=== PATIENT | male | born 1995 | race American Indian/Alaskan Native ===

== ENCOUNTER 2018-03-03 03:20 | Emergency (ER) | payer BC ==
[2018-03-03] MEDS ORDERED: DiphenhydrAMINE 50 mg/ml Inj ONE ×2 (03:26→10:11)
[2018-03-03] MEDS ORDERED: Sodium Chloride 0.9% 1,000 ML IV ONE (03:44)
[2018-03-03] MEDS ORDERED: DiphenhydrAMINE 50 mg/ml Inj IVP STA ×2 (03:44→09:34)
[2018-03-03] MEDS ORDERED: MethylPREDNISolone 40 mg Vial IVP STA (03:44)
[2018-03-03] MEDS ORDERED: EPINEPHrine 1 mg/ml (1:1000) Inj IM ONE (03:44)
[2018-03-03] MEDS ORDERED: EPINEPHrine 1 mg/ml (1:1000) Inj ONE (03:50)
--- NOTE | 2018-03-03 03:56 | C.PDOC ---
History Of Present Illness 23 year old male with no pertinent PMHx presents to the ER for allergic reaction. As per girlfriend at bedside today is the patient's birthday, he was out drinking and ate some food he did not know was cooked with peanut oil. Since then he has had lip swelling and a rash that moves around his body. Denies tickling to the back of throat, sore throat, difficulty breathing, fever, chills, night sweats, trauma or fall. Time Seen by Provider: 03/03/18 03:24 Chief Complaint (Nursing): Allergic Reaction History Per: Patient History/Exam Limitations: no limitations Onset/Duration Of Symptoms: Hrs Current Symptoms Are (Timing): Still Present Context: Food Possible Cause: Food (Peanut oil) Associated Symptoms: Skin Rash, Swelling Home/EMS Treatment: None Recent travel outside of the [place]: No Past Medical History Reviewed: Historical Data, Nursing Documentation, Vital Signs Vital Signs: Last Vital Signs Temp 97.3 F L 03/03/18 03:24 Pulse 111 H 03/03/18 03:24 Resp BP 113/69 03/03/18 03:24 Pulse Ox 99 03/03/18 03:24 Family History: States: Unknown Family Hx - Social History Hx Alcohol Use: Yes Hx Substance Use: No - Immunization History Hx Tetanus Toxoid Vaccination: No Hx Influenza Vaccination: No Hx Pneumococcal Vaccination: No Review Of Systems Except As Marked, All Systems Reviewed And Found Negative. ENT: Positive for: Other (Lip swelling) Skin: Positive for: Rash Physical Exam - Physical Exam Appears: Well, Non-toxic Skin: Warm, Dry, Rash (Puritic urticarial rash on chest) Head: Atraumatic, Normacephalic Eye(s): bilateral: Normal Inspection, PERRL, EOMI Oral Mucosa: Moist Tongue: Normal Appearing, No Swelling Lips: Other (Lower lip mildly enlarged) Throat: Normal, Other (Protecting airway) Neck: Normal, Supple Chest: Symmetrical, No Tenderness Cardiovascular: Rhythm Regular Respiratory: Normal Breath Sounds, No Accessory Muscle Use, No Stridor, No Wheezing Gastrointestinal/Abdominal: Soft, No Tenderness Back: No CVA Tenderness, No Vertebral Tenderness Extremity: Normal ROM (x4) Neurological/Psych: Oriented x3, Normal Speech ED Course And Treatment O2 Sat by Pulse Oximetry: 99 (Room air) Pulse Ox Interpretation: Normal Medical Decision Making Medical Decision Makin yr old male w/ hx of peanut allergy p/w etoh intoxication and allergic reaction. Accidental ingestion of peanut oil while drinking for pts birthday. Pt intoxicated on exam. +etoh odor noted. No signs of trauma. No trauma per girlfriend bedside who was with pt throughout eval, no signs of trauma on exam. Given epi given etoh intoxication confounding. Mild hives, no complaints of neck/throat tickling or sob. Impression: Allergic reaction IV fluids, benadryl, solumedrol, pepcid, and epi administered. 0652 hives resolved. No complaints of neck/throat tickling or sob. remains intoxicated protecting airway well pt in NAD signed out to Dr. Del Rosario pending clinical sobreity, re-eval. Disposition - Disposition Referrals: [employer] [facility] [place] [Outside] [facility] [Outside] [facility] [Outside] Disposition: HOME/ ROUTINE Disposition Time: 07:00 Condition: GOOD Prescriptions: Epinephrine [Epipen] 0.3 mg IJ Q15MIN PRN #2 auto.injct PRN Reason: Anaphylaxis DiphenhydrAMINE [Benadryl] 25 mg PO Q8H PRN 5 Days #15 cap PRN Reason: Allergy Symptoms predniSONE [Prednisone] 40 mg PO DAILY 5 Days #10 tab Instructions: Hives, Food Allergy, Anaphylaxis (DC) Forms: [employer] (Namibian) - Clinical Impression Clinical Impression: Allergy to peanuts, Allergic urticaria, Alcohol abuse - Scribe Statement The provider has reviewed the documentation as recorded by the Scribe Henok Rodriguez All medical record entries made by the Scribe were at my direction and personally dictated by me. I have reviewed the chart and agree that the record accurately reflects my personal performance of the history, physical exam, medical decision making, and the department course for this patient. I have also personally directed, reviewed, and agree with the discharge instructions and disposition.
[2018-03-03 09:02] VITALS: RESP 18
[2018-03-03] MEDS ORDERED: Dexamethasone 4 mg/1 ml IVP STA (09:34)
[2018-03-03 10:25] VITALS: BP 122/68; PULSE 106; TEMP 99.5; O2SAT 97
== END 2018-03-03 10:31 | disposition home or self-care (01) ==
LOC: C.ER 03:20
DX: L50.0 Allergic urticaria (principal); F10.10 Alcohol abuse, uncomplicated; Z91.010 Allergy to peanuts
CPT/HCPCS: 96372; 96374; 96375; 96376; 99285; J0171; J1100; J1200; J2920; J7030